=== PATIENT | female | born 1970 | race Two or more races ===

== ENCOUNTER 2016-06-07 19:53 | Inpatient (IN) | payer MEDICAID ==
[~2016-06-07] VITALS: Ht 160 cm; Wt 150.0 kg
[~2016-06-07 19:53] MED LIST: LEVO125T46; NOR10T
[2016-06-07 21:11] LABS: Basophils # (auto) 0 uL; Basophils % (auto) 0.1 % (0.0-2.0); Eosinophils # (auto) 0.1 uL; Eosinophils % (auto) 0.9 % (0.0-7.0); Hematocrit 44.8 % (36.0-46.0); Hemoglobin 14.9 g/dL (12.2-16.2); Lymphocytes # (auto) 1.1 uL; Lymphocytes % (auto) 8.9 % (10.0-50.0); Mean Corpuscular Hemoglobin 28.1 pg (28.0-32.0); Mean Corpuscular Hgb Conc. 33.2 g/dL (32.0-36.0); Mean Corpuscular Volume 84.9 fL (80.0-100.0); Monocytes # (auto) 0.9 uL; Monocytes % (auto) 7.3 % (0.0-12.0); Neutrophils % (auto) 82.8 % (37.0-80.0); Platelet Count (auto) 238 10^3/uL (140-450); Red Cell Distribution Width 13.8 % (11.6-16.0); White Blood Cell 12.1 10^3/uL (4.4-10.8)
[2016-06-07 21:31] LABS: Albumin 2.4 g/dL (3.4-5.0); BUN/Creatinine Ratio 10.1; Bilirubin, Total 1.2 mg/dL (0.2-1.0); Calcium 8.9 mg/dL (8.5-10.1); Potassium 3.8 mmol/L (3.5-5.1); Total Protein 8.3 g/dL (6.4-8.2)
[2016-06-08] MEDS ORDERED: SODIUM CHLORIDE 0.9% 1,000 ML IV ONE (01:30)
[2016-06-08] MEDS ORDERED: HYDROmorphone HCL 2 MG/ML VL ONE (02:00)
[2016-06-08] MEDS ORDERED: ONDANSETRON HCL 4 MG/2 ML VIAL ONE (02:01)
[2016-06-08] MEDS ORDERED: InsuLIN REG 1unit/0.01ml Soln (100units/ml) IV ONE (02:15)
[2016-06-08] MEDS ORDERED: HYDROmorphone HCL 2 MG/ML VL IV ONE (02:15)
[2016-06-08] MEDS ORDERED: ONDANSETRON HCL 4 MG/2 ML VIAL IV ONE (02:15)
[2016-06-08] MEDS ORDERED: SODIUM CHLORIDE 0.9% 1,000 ML IV SCH (04:38)
[2016-06-08] MEDS ORDERED: MORPHINE SULF INJ 2 MG/ML SYRINGE 1ML IV PRN (04:45)
[2016-06-08] MEDS ORDERED: ONDANSETRON HCL 4 MG/2 ML VIAL IV PRN (04:45)
[2016-06-08] MEDS ORDERED: TEMAZEPAM 15 MG CAP PO PRN (04:45)
[2016-06-08] MEDS ORDERED: ACETAMINOPHEN 325 MG TAB PO PRN (04:45)
[2016-06-08] MEDS ORDERED: SODIUM CHLORIDE 0.9% 500 ML IV ONE (04:45)
[2016-06-08] MEDS ORDERED: DEXTROSE (50%) 50ML SYRG IV PRN ×2 (05:00→10:00)
[2016-06-08 05:56] VITALS: BP 119/76
[2016-06-08] MEDS ORDERED: METF-312 PO (06:16)
[2016-06-08] MEDS: glipiZIDE 5 MG TAB PO SCH ×2 (06:43→18:25)
[2016-06-08] MEDS: LEVOTHYROXINE SODIUM 50 MCG TAB PO SCH (06:46)
[2016-06-08] MEDS ORDERED: ACCU-CHEK COMFORT CURVE STRIP VI SCH (08:00)
[2016-06-08] MEDS ORDERED: InsuLIN REG 1unit/0.01ml Soln (100units/ml) SC SCH (08:00)
[2016-06-08 08:50] VITALS: BP 113/67
[2016-06-08] MEDS ORDERED: NITROFURANTOIN (MONO) 100 mg CAP PO SCH (10:00)
[2016-06-08] MEDS ORDERED: cefTRIAXone 1GM/50ML D5W 50 ML IV ONE (10:15)
[2016-06-08] MEDS: FAMOTIDINE 20 MG TAB PO SCH ×2 (10:23→21:28)
[2016-06-08] MEDS: ENOXAPARIN SOD 40 MG/0.4 ML SYRINGE SC SCH (10:23)
[2016-06-08] MEDS: ACCU-CHEK COMFORT CURVE STRIP VI SCH ×3 (11:30→21:28)
[2016-06-08] MEDS: InsuLIN REG 1unit/0.01ml Soln (100units/ml) SC SCH ×3 (11:30→21:45)
[2016-06-08 12:50] VITALS: BP 111/74
[2016-06-08] MEDS: HYDROcodone-ACET 5/325MG TAB PO PRN ×2 (13:07→20:37)
[2016-06-08 16:50] VITALS: BP 121/68
[2016-06-08 21:30] VITALS: BP 127/78
[2016-06-09 04:58] VITALS: BP 121/77
[2016-06-09] MEDS: SODIUM CHLORIDE 0.9% 1,000 ML IV SCH ×2 (05:11→14:25)
[2016-06-09 06:03] LABS: Basophils # (auto) 0 uL; Basophils % (auto) 0.2 % (0.0-2.0); Eosinophils # (auto) 0.2 uL; Eosinophils % (auto) 1.9 % (0.0-7.0); Hematocrit 39.5 % (36.0-46.0); Hemoglobin 13.2 g/dL (12.2-16.2); Lymphocytes # (auto) 1.6 uL; Lymphocytes % (auto) 17.1 % (10.0-50.0); Mean Corpuscular Hemoglobin 28.2 pg (28.0-32.0); Mean Corpuscular Hgb Conc. 33.5 g/dL (32.0-36.0); Mean Corpuscular Volume 84.2 fL (80.0-100.0); Mean Platelet Volume 8.8 fL (7.4-10.4); Monocytes # (auto) 1.4 uL; Monocytes % (auto) 14.2 % (0.0-12.0); Neutrophils # (auto) 6.4 uL; Neutrophils % (auto) 66.6 % (37.0-80.0); Platelet Count (auto) 251 10^3/uL (140-450); Red Cell Distribution Width 13.8 % (11.6-16.0); White Blood Cell 9.6 10^3/uL (4.4-10.8)
[2016-06-09] MEDS: LEVOTHYROXINE SODIUM 50 MCG TAB PO SCH (06:23)
[2016-06-09] MEDS: glipiZIDE 5 MG TAB PO SCH ×2 (06:23→17:44)
[2016-06-09] MEDS: ACCU-CHEK COMFORT CURVE STRIP VI SCH ×4 (06:24→22:03)
[2016-06-09] MEDS: InsuLIN REG 1unit/0.01ml Soln (100units/ml) SC SCH ×4 (06:31→22:10)
[2016-06-09 06:56] LABS: BUN/Creatinine Ratio 13.1; Bilirubin, Total 0.6 mg/dL (0.2-1.0); Calcium 8.4 mg/dL (8.5-10.1); Potassium 3.8 mmol/L (3.5-5.1); Total Protein 7.1 g/dL (6.4-8.2)
[2016-06-09] MEDS: cefTRIAXone 1GM/50ML D5W 50 ML IV SCH (08:37)
[2016-06-09] MEDS: HYDROcodone-ACET 5/325MG TAB PO PRN ×2 (08:38→18:07)
[2016-06-09 08:49] VITALS: BP 127/72
[2016-06-09] MEDS: FAMOTIDINE 20 MG TAB PO SCH ×2 (09:17→21:59)
[2016-06-09] MEDS: ENOXAPARIN SOD 40 MG/0.4 ML SYRINGE SC SCH (09:17)
[2016-06-09 12:50] VITALS: BP 113/74
[2016-06-09 17:13] VITALS: BP 99/54
[2016-06-09] MEDS: metFORMIN HYDROCHLORIDE 500 MG TAB PO SCH (17:45)
[2016-06-09 20:00] VITALS: BP 145/71
[2016-06-09 21:28] VITALS: BP 145/71
[2016-06-10] MEDS: HYDROcodone-ACET 5/325MG TAB PO PRN (00:41)
[2016-06-10 06:02] VITALS: BP 126/73
[2016-06-10] MEDS: SODIUM CHLORIDE 0.9% 1,000 ML IV SCH ×2 (06:03→10:38)
[2016-06-10] MEDS: InsuLIN REG 1unit/0.01ml Soln (100units/ml) SC SCH (07:04)
[2016-06-10] MEDS: ACCU-CHEK COMFORT CURVE STRIP VI SCH (07:04)
[2016-06-10] MEDS: glipiZIDE 5 MG TAB PO SCH (07:06)
[2016-06-10] MEDS: LEVOTHYROXINE SODIUM 50 MCG TAB PO SCH (07:07)
[2016-06-10] MEDS: metFORMIN HYDROCHLORIDE 500 MG TAB PO SCH (07:08)
[2016-06-10 07:24] LABS: Basophils # (auto) 0 uL; Basophils % (auto) 0.4 % (0.0-2.0); Eosinophils # (auto) 0.5 uL; Eosinophils % (auto) 4.9 % (0.0-7.0); Hematocrit 39.7 % (36.0-46.0); Hemoglobin 13.1 g/dL (12.2-16.2); Lymphocytes # (auto) 1.7 uL; Mean Platelet Volume 8.9 fL (7.4-10.4); Monocytes # (auto) 1.1 uL; Monocytes % (auto) 11.6 % (0.0-12.0); Neutrophils % (auto) 65.1 % (37.0-80.0); Platelet Count (auto) 270 10^3/uL (140-450); Red Cell Distribution Width 14.1 % (11.6-16.0); White Blood Cell 9.2 10^3/uL (4.4-10.8)
[2016-06-10 07:53] LABS: Bilirubin, Total 0.4 mg/dL (0.2-1.0); Calcium 8.4 mg/dL (8.5-10.1); Potassium 4.4 mmol/L (3.5-5.1); Total Protein 7.1 g/dL (6.4-8.2)
[2016-06-10] MEDS: cefTRIAXone 1GM/50ML D5W 50 ML IV SCH (09:00)
[2016-06-10 09:24] VITALS: BP 116/78
[2016-06-10 09:35] VITALS: BP 116/78
[2016-06-10] MEDS: FAMOTIDINE 20 MG TAB PO SCH (10:00)
[2016-06-10] MEDS: ENOXAPARIN SOD 40 MG/0.4 ML SYRINGE SC SCH (10:00)
== END 2016-06-10 11:00 | disposition home or self-care (01) | DRG 463 ==
LOC: ER 20:00 → OVERFLOW 20:01 → CENTRAL 06-08 05:45
PROVIDERS: ADMIT Nurse Practitioner; ATTEND Internal Medicine
DX: N39.0 Urinary tract infection, site not specified (principal); E43 Unspecified severe protein-calorie malnutrition; E11.65 Type 2 diabetes mellitus with hyperglycemia; E87.1 Hypo-osmolality and hyponatremia; Z68.43 Body mass index [BMI] 50.0-59.9, adult; B37.9 Candidiasis, unspecified; E66.01 Morbid (severe) obesity due to excess calories; E03.9 Hypothyroidism, unspecified; N89.8 Other specified noninflammatory disorders of vagina; E86.0 Dehydration; K21.9 Gastro-esophageal reflux disease without esophagitis; F12.90 Cannabis use, unspecified, uncomplicated; F17.210 Nicotine dependence, cigarettes, uncomplicated; Z90.49 Acquired absence of other specified parts of digestive tract; Z98.51 Tubal ligation status; Z82.3 Family history of stroke; Z83.3 Family history of diabetes mellitus; Z79.899 Other long term (current) drug therapy; Z91.19 Patient's noncompliance with other medical treatment and regimen
CPT/HCPCS: 36415; 70450; 71010; 80053; 82010; 82962; 83036; 84295; 85025; 96361; 96374; 96375; J0696; J1815; J2405

== ENCOUNTER 2016-06-13 14:40 | Emergency (ER) | payer MEDICAID ==
[~2016-06-13] VITALS: Ht 160 cm; Wt 158.8 kg
[~2016-06-13 14:40] MED LIST changes: +METF-312 PO
[2016-06-13 14:59] VITALS: BP 163/96
[2016-06-13 15:23] LABS: Basophils # (auto) 0.1 uL; Basophils % (auto) 0.9 % (0.0-2.0); Eosinophils # (auto) 0.2 uL; Eosinophils % (auto) 1.7 % (0.0-7.0); Hematocrit 45.7 % (36.0-46.0); Hemoglobin 15.1 g/dL (12.2-16.2); Lymphocytes # (auto) 1.7 uL; Lymphocytes % (auto) 11.6 % (10.0-50.0); Mean Corpuscular Hemoglobin 27.6 pg (28.0-32.0); Mean Corpuscular Hgb Conc. 33.1 g/dL (32.0-36.0); Mean Corpuscular Volume 83.4 fL (80.0-100.0); Mean Platelet Volume 8.2 fL (7.4-10.4); Monocytes # (auto) 0.8 uL; Monocytes % (auto) 5.6 % (0.0-12.0); Neutrophils # (auto) 11.4 uL; Neutrophils % (auto) 80.2 % (37.0-80.0); Platelet Count (auto) 482 10^3/uL (140-450); Red Cell Distribution Width 14.4 % (11.6-16.0); White Blood Cell 14.2 10^3/uL (4.4-10.8)
[2016-06-13 15:39] LABS: Albumin 2.8 g/dL (3.4-5.0); Calcium 9.2 mg/dL (8.5-10.1); Potassium 4.1 mmol/L (3.5-5.1)
[2016-06-13 15:42] LABS: BUN/Creatinine Ratio 14.5; Bilirubin, Total 0.6 mg/dL (0.2-1.0)
[2016-06-13 19:51] LABS: Urine Bilirubin Negative (Negative); Urine Blood Negative /uL (Negative); Urine Color Yellow (Yellow); Urine Ketone Negative (Negative); Urine Mucus FEW (None Seen); Urine Nitrite Negative (Negative); Urine RBC 1 /hpf (0 - 4); Urine Squamous Epithelial Cell FEW /hpf (<5); Urine Urobilinogen Normal (Negative); Urine pH 5.5 (5.0-8.0)
[2016-06-13] MEDS ORDERED: SODIUM CHLORIDE 0.9% 1,000 ML IV ONE (20:00)
[2016-06-13] MEDS ORDERED: InsuLIN REG 1unit/0.01ml Soln (100units/ml) IV ONE (20:00)
[2016-06-13] MEDS ORDERED: KETOROLAC TROMETH 30 MG/ML 1ML VIAL IV ONE (20:15)
[2016-06-13] MEDS ORDERED: ONDANSETRON HCL 4 MG/2 ML VIAL IV ONE (20:15)
[2016-06-13 21:06] LABS: Urine Glucose 4+ mg/dL (Normal)
== END 2016-06-13 22:00 | disposition home or self-care (01) ==
LOC: ER 14:40
DX: E11.65 Type 2 diabetes mellitus with hyperglycemia (principal); K52.9 Noninfective gastroenteritis and colitis, unspecified; E87.1 Hypo-osmolality and hyponatremia; E86.0 Dehydration
CPT/HCPCS: 36415; 71010; 80053; 81001; 82010; 82962; 83605; 85025; 96361; 96374; 96375; 99285; J1885; J2405; J7030

== ENCOUNTER 2016-06-18 10:26 | Inpatient (IN) | payer MEDICAID ==
[2016-06-18] VITALS (8 sets, daily range): BP systolic 67–127; BP diastolic 27–75
[~2016-06-18] VITALS: Ht 160 cm; Wt 152.0 kg
[2016-06-18 11:25] LABS: Hematocrit 42.8 % (36.0-46.0); Hemoglobin 14.3 g/dL (12.2-16.2); Mean Corpuscular Hemoglobin 27.8 pg (28.0-32.0); Mean Corpuscular Hgb Conc. 33.5 g/dL (32.0-36.0); Mean Platelet Volume 9.7 fL (7.4-10.4); Platelet Count (auto) 303 10^3/uL (140-450); Red Cell Distribution Width 14.6 % (11.6-16.0); SUSPECT VIEW TRANSMISSION; White Blood Cell 19.3 10^3/uL (4.4-10.8)
[2016-06-18 11:39] LABS: Metamyelocytes % 0; Myelocytes % 0; Promyelocytes % 0; Reactive Lymphocytes 0
[2016-06-18 11:43] LABS: Lactic Acid 6.5 mmol/L (0.4-2.0)
[2016-06-18 11:44] LABS: REFLEX LACTIC ACID YES OR NO YES
[2016-06-18] MEDS ORDERED: cefTRIAXone 1GM/50ML D5W 50 ML IV ONE (12:00)
[2016-06-18] MEDS ORDERED: SODIUM CHLORIDE 0.9% 1,000 ML IV ONE (12:00)
[2016-06-18 12:10] LABS: Albumin 1.6 g/dL (3.4-5.0); Calcium 8.8 mg/dL (8.5-10.1); Magnesium 2.1 mg/dL (1.6-2.6); Potassium 4.9 mmol/L (3.5-5.1)
[2016-06-18 12:12] LABS: BUN/Creatinine Ratio 17.7
[2016-06-18 12:15] LABS: Bilirubin, Total 2.6 mg/dL (0.2-1.0); Total Protein 7.4 g/dL (6.4-8.2)
[2016-06-18 12:39] LABS: Urine Color Yellow (Yellow); Urine Ketone TRACE (Negative); Urine Mucus FEW (None Seen); Urine Nitrite Negative (Negative); Urine RBC 23 /hpf (0 - 4); Urine Squamous Epithelial Cell FEW /hpf (<5)
[2016-06-18 12:44] LABS: Urine Blood 1+ /uL (Negative); Urine Glucose 4+ mg/dL (Normal)
[2016-06-18 12:51] LABS: Urine Bilirubin 1+ (Negative)
[2016-06-18 13:04] LABS: Hypochromia Slight; Platelet Estimate Adequate
[2016-06-18] MEDS ORDERED: KETOROLAC TROMETH 30 MG/ML 1ML VIAL IV ONE (13:15)
[2016-06-18] MEDS ORDERED: NITROGLYCERIN 0.4 MG SL TAB SL PRN (13:30)
[2016-06-18] MEDS ORDERED: ACETAMINOPHEN 500 MG TAB PO PRN (13:30)
[2016-06-18] MEDS ORDERED: PIPERACILLIN-TAZOB 3.375GM 100 ML IV ONE (13:30)
[2016-06-18] MEDS ORDERED: LACTULOSE 20Gm/30ML SOLN PO PRN ×2 (13:30)
[2016-06-18] MEDS ORDERED: AZITHROMYCIN 500MG/D5W 250ML 250 ML IV ONE ×2 (13:30→15:30)
[2016-06-18] MEDS ORDERED: ALBUTEROL SULF 2.5 MG/0.5ML(0.5%) NEB SOLN NEB PRN (13:30)
[2016-06-18] MEDS ORDERED: MORPHINE SULF INJ 2 MG/ML SYRINGE 1ML IV PRN (13:30)
[2016-06-18] MEDS ORDERED: OSELTAMIVIR 75 MG CAP PO ONE (13:30)
[2016-06-18] MEDS ORDERED: HYDROcodone-ACET 5/325MG TAB PO PRN (13:30)
[2016-06-18] MEDS ORDERED: LORazepam 0.5 MG TAB PO PRN (13:30)
[2016-06-18] MEDS ORDERED: VANCOMYCIN PER PHARMACY 0 MG IV SCH (13:30)
[2016-06-18] MEDS ORDERED: TEMAZEPAM 15 MG CAP PO PRN (13:30)
[2016-06-18] MEDS ORDERED: InsuLIN REG 1unit/0.01ml Soln (100units/ml) IV ONE (13:30)
[2016-06-18] MEDS ORDERED: PROMETHAZINE HCL 25 MG/ML 1ML IV PRN (13:30)
[2016-06-18] MEDS ORDERED: ASPirin 81 mg TAB PO ONE (13:30)
[2016-06-18] MEDS ORDERED: DEXTROSE (50%) 50ML SYRG IV PRN (13:30)
[2016-06-18 14:17] LABS: Lactic Acid 4.7 mmol/L (0.4-2.0)
[2016-06-18] MEDS: SODIUM CHLORIDE 0.9% 1,000 ML IV SCH ×2 (14:19→21:48)
[2016-06-18] MEDS ORDERED: SODIUM BICARBONATE 8.4% INJ 50ML SYRINGE IV ONE (14:20)
[2016-06-18] MEDS ORDERED: EPINEPHrine HCL 1 MG/10 ML SYRG IV ONE (14:20)
[2016-06-18] MEDS ORDERED: VANCOMYCIN 1GM/250ML D5W 250 ML IV ONE (14:30)
[2016-06-18] MEDS: PANTOPRAZOLE 40 MG TAB PO SCH (14:32)
[2016-06-18] MEDS: ENOXAPARIN SOD 40 MG/0.4 ML SYRINGE SC SCH (14:32)
[2016-06-18 15:07] LABS: REFLEX LACTIC ACID YES OR NO NO
[2016-06-18 15:28] LABS: B-Type Natriuretic Peptide 96.1 pg/mL (0-100); Temperature: 21.4 C (20.0-25.0)
[2016-06-18] MEDS: InsuLIN REG 1unit/0.01ml Soln (100units/ml) SC SCH ×2 (16:00→20:45)
[2016-06-18] MEDS: MORPHINE SULF INJ 2 MG/ML SYRINGE 1ML IV PRN ×2 (16:25→22:58)
[2016-06-18] MEDS: ACCU-CHEK COMFORT CURVE STRIP VI SCH ×2 (16:33→20:00)
[2016-06-18] MEDS ORDERED: NOREPINEPHRINE BITARTRATE 250 ML IV ONE (17:09)
[2016-06-18 17:27] LABS: REFLEX LACTIC ACID YES OR NO NO
[2016-06-18] MEDS: NOREPINEPHRINE BITARTRATE 250 ML IV SCH (17:30)
[2016-06-18] MEDS: ALBUTEROL SULF 2.5 MG/0.5ML(0.5%) NEB SOLN NEB SCH (18:40)
[2016-06-18] MEDS: PIPERACILLIN-TAZOB 3.375GM 100 ML IV SCH (20:00)
[2016-06-18] MEDS: OSELTAMIVIR 75 MG CAP PO SCH (22:37)
[2016-06-19] VITALS (93 sets, daily range): BP systolic 74–149; BP diastolic 30–113
[2016-06-19] MEDS: ALBUTEROL SULF 2.5 MG/0.5ML(0.5%) NEB SOLN NEB SCH ×3 (00:19→06:49)
[2016-06-19] MEDS: PIPERACILLIN-TAZOB 3.375GM 100 ML IV SCH ×4 (02:00→21:38)
[2016-06-19] MEDS: InsuLIN REG 1unit/0.01ml Soln (100units/ml) SC SCH ×6 (04:00→21:33)
[2016-06-19] MEDS: ACCU-CHEK COMFORT CURVE STRIP VI SCH ×6 (04:00→21:33)
[2016-06-19 04:23] LABS: Hematocrit 41.1 % (36.0-46.0); Hemoglobin 13.6 g/dL (12.2-16.2); Mean Corpuscular Hemoglobin 27.9 pg (28.0-32.0); Mean Corpuscular Hgb Conc. 33.1 g/dL (32.0-36.0); Mean Corpuscular Volume 84.4 fL (80.0-100.0); Mean Platelet Volume 9.7 fL (7.4-10.4); Platelet Count (auto) 275 10^3/uL (140-450); SUSPECT VIEW TRANSMISSION; White Blood Cell 17.1 10^3/uL (4.4-10.8)
[2016-06-19 04:32] LABS: Promyelocytes % 0; Reactive Lymphocytes 0
[2016-06-19 04:34] LABS: Partial Thromboplastin Time 30.6 sec (22.64-33.71)
[2016-06-19 04:38] LABS: INR 1.35 (0.9-1.15); Prothrombin Time 13.9 sec (9.37-12.3)
[2016-06-19 05:22] LABS: Albumin 1.4 g/dL (3.4-5.0); BUN/Creatinine Ratio 15.4; Bilirubin, Total 3.3 mg/dL (0.2-1.0); Calcium 8.4 mg/dL (8.5-10.1); Potassium 4.6 mmol/L (3.5-5.1); Total Protein 6.7 g/dL (6.4-8.2)
[2016-06-19 05:26] LABS: B-Type Natriuretic Peptide 149.72 pg/mL (0-100); Temperature: 21.9 C (20.0-25.0)
[2016-06-19] MEDS: SODIUM CHLORIDE 0.9% 1,000 ML IV SCH ×3 (06:08→23:04)
[2016-06-19] MEDS: LEVALBUTEROL HCL 1.25 MG/0.5 ML NEB SOLN NEB SCH ×4 (09:19→23:51)
[2016-06-19] MEDS: PANTOPRAZOLE 40 MG TAB PO SCH (09:35)
[2016-06-19] MEDS: OSELTAMIVIR 75 MG CAP PO SCH ×2 (09:35→22:50)
[2016-06-19] MEDS: ENOXAPARIN SOD 40 MG/0.4 ML SYRINGE SC SCH (09:35)
[2016-06-19] MEDS ORDERED: AZITHROMYCIN 500MG/D5W 250ML 250 ML IV SCH (10:00)
[2016-06-19 12:44] LABS: Giant Platelets Few; Metamyelocytes % 9; Myelocytes % 6; Platelet Estimate Adequate; RBC Morphology Normal
[2016-06-19] MEDS ORDERED: ETOMIDATE (2MG/ML) 20ML VIAL IV ONE ×2 (13:31→17:19)
[2016-06-19] MEDS ORDERED: ROCURONIUM 10MG/ML 10ML VIAL IV ONE ×2 (13:31→17:18)
[2016-06-19] MEDS ORDERED: SUCCINYLCHOLINE CHLORIDE 20 MG/ML 10ML VIAL IV ONE ×2 (13:32→17:19)
[2016-06-19] MEDS: fentaNYL Drip 2500mCg/250mlNS 250 ML IV SCH (13:45)
[2016-06-19] MEDS ORDERED: fentaNYL Drip 2500mCg/250mlNS 250 ML IV ONE (14:06)
[2016-06-19] MEDS ORDERED: VANCOMYCIN 1,500 MG in D5W 5% 250 ML IV SCH (15:00)
[2016-06-19] MEDS ORDERED: SODIUM BICARBONATE 8.4 % INJ 50ML VIAL IV STA (15:29)
[2016-06-19] MEDS ORDERED: SODIUM BICARBONATE 8.4% INJ 50ML SYRINGE ONE (15:30)
[2016-06-19] MEDS ORDERED: SODIUM BICARBONATE 8.4 % INJ 50ML VIAL IV ONE (15:30)
[2016-06-19] MEDS ORDERED: MIDAZOLAM DRIP 100 mg/100mL NS 100 ML IV ONE (17:09)
[2016-06-19] MEDS: MIDAZOLAM DRIP 100 mg/100mL NS 100 ML IV SCH (17:14)
[2016-06-19] MEDS ORDERED: MIDAZOLAM HCL 1MG/1ML-2 ML VIAL ONE ×2 (17:26→17:38)
[2016-06-19] MEDS ORDERED: BUMETANIDE (0.25 MG/ML) INJ 10ML IV ONE (17:30)
[2016-06-19] MEDS: NOREPINEPHRINE BITARTRATE 250 ML IV SCH (20:03)
[2016-06-19] MEDS ORDERED: VASOPRESSIN 20 UNIT/ML ONE (20:17)
[2016-06-19] MEDS: VASOPRESSIN 50 UNITS in SODIUM CHL 0.9% 247.5 ML IV SCH (22:20)
[2016-06-20] VITALS (108 sets, daily range): BP systolic 47–160; BP diastolic 27–111
[2016-06-20] MEDS: InsuLIN REG 1unit/0.01ml Soln (100units/ml) SC SCH ×5 (00:08→23:38)
[2016-06-20] MEDS: ACCU-CHEK COMFORT CURVE STRIP VI SCH ×6 (00:29→23:38)
[2016-06-20] MEDS: NOREPINEPHRINE BITARTRATE 250 ML IV SCH ×2 (00:30→04:32)
[2016-06-20] MEDS: PIPERACILLIN-TAZOB 3.375GM 100 ML IV SCH ×4 (01:41→21:07)
[2016-06-20] MEDS ORDERED: PHENYLEPHRINE INJ 20 MG in SODIUM CHL 0.9% 250 ML IV SCH (01:57)
[2016-06-20] MEDS ORDERED: PHENYLEPHRINE IV 250 ML IV ONE ×2 (03:47→07:08)
[2016-06-20 03:50] LABS: Hematocrit 36.4 % (36.0-46.0); Mean Corpuscular Hemoglobin 28.2 pg (28.0-32.0); Mean Corpuscular Hgb Conc. 33.1 g/dL (32.0-36.0); Mean Corpuscular Volume 85.3 fL (80.0-100.0); Mean Platelet Volume 9.6 fL (7.4-10.4); Platelet Count (auto) 233 10^3/uL (140-450); Red Cell Distribution Width 16.1 % (11.6-16.0); SUSPECT VIEW TRANSMISSION; White Blood Cell 27.4 10^3/uL (4.4-10.8)
[2016-06-20 04:34] LABS: Albumin 1.2 g/dL (3.4-5.0); BUN/Creatinine Ratio 14.7; Bilirubin, Total 4.1 mg/dL (0.2-1.0); Calcium 7.7 mg/dL (8.5-10.1); Potassium 5.5 mmol/L (3.5-5.1); Total Protein 6.3 g/dL (6.4-8.2)
[2016-06-20 05:03] LABS: Promyelocytes % 0; Reactive Lymphocytes 0
[2016-06-20 05:24] LABS: Metamyelocytes % 3; Myelocytes % 3
[2016-06-20 05:25] LABS: Platelet Estimate Adequate; RBC Morphology Normal
[2016-06-20] MEDS: LEVALBUTEROL HCL 1.25 MG/0.5 ML NEB SOLN NEB SCH ×3 (05:51→19:36)
[2016-06-20 06:29] LABS: Lactic Acid 3.8 mmol/L (0.4-2.0)
[2016-06-20 06:34] LABS: REFLEX LACTIC ACID YES OR NO NO
[2016-06-20] MEDS ORDERED: DEXTROSE (50%) 50ML SYRG IV PRN (06:45)
[2016-06-20] MEDS: SODIUM CHLORIDE 0.9% 1,000 ML IV SCH ×2 (07:27→14:54)
[2016-06-20] MEDS: NOREPINEPHRINE BITARTRATE 16 MG in D5W 5% 250 ML IV SCH ×2 (09:00→20:00)
[2016-06-20] MEDS: PHENYLEPHRINE INJ 40 MG in SODIUM CHL 0.9% 250 ML IV SCH ×2 (09:00→22:18)
[2016-06-20] MEDS ORDERED: LEVOFLOXACIN 500MG 100 ML IV SCH (10:15)
[2016-06-20] MEDS ORDERED: LEVOFLOXACIN 500MG 100 ML IV ONE (10:15)
[2016-06-20] MEDS ORDERED: LEVOFLOXACIN 750MG 150 ML IV ONE (10:15)
[2016-06-20] MEDS: ENOXAPARIN SOD 40 MG/0.4 ML SYRINGE SC SCH (10:19)
[2016-06-20] MEDS: PANTOPRAZOLE 40 MG TAB PO SCH (10:19)
[2016-06-20] MEDS: OSELTAMIVIR 75 MG CAP PO SCH ×2 (10:19→22:00)
[2016-06-20] MEDS: FLUCONAZOLE 200MG/100ML 100 ML IV SCH ×2 (10:54→11:20)
[2016-06-20] MEDS: LINEZOLID 600MG/300ML 300 ML IV SCH ×2 (11:21→23:40)
[2016-06-20] MEDS: fentaNYL Drip 2500mCg/250mlNS 250 ML IV SCH (13:45)
[2016-06-20] MEDS: CLINDAMYCIN 300MG IV 50 ML IV SCH ×2 (14:00→22:21)
[2016-06-20] MEDS: EPINEPHrine HCL INJECTION 8 MG in D5W 5% 250 ML IV SCH ×2 (14:54→22:18)
[2016-06-20] MEDS ORDERED: SODIUM CHLORIDE 0.9% 2,000 ML IV ONE (15:15)
[2016-06-20] MEDS ORDERED: SODIUM BICARBONATE 8.4% INJ 50ML SYRINGE ONE ×2 (15:21→22:49)
[2016-06-20] MEDS ORDERED: SODIUM BICARBONATE 8.4 % INJ 50ML VIAL IV ONE ×2 (15:30→23:00)
[2016-06-20] MEDS: ALBUMIN 25% 100 ML IV SCH ×2 (15:50→17:30)
[2016-06-20] MEDS: SODIUM BICARBONATE 50ML VIAL 150 ML in D5W 5% 1,000 ML IV SCH (16:00)
[2016-06-20 16:05] LABS: DEFINITIVE VIEW TRANSMISSION; Hematocrit 33.3 % (36.0-46.0); Hemoglobin 11.1 g/dL (12.2-16.2); Mean Corpuscular Hemoglobin 28.5 pg (28.0-32.0); Mean Corpuscular Hgb Conc. 33.2 g/dL (32.0-36.0); Mean Corpuscular Volume 85.8 fL (80.0-100.0); Mean Platelet Volume 9.6 fL (7.4-10.4); Platelet Count (auto) 220 10^3/uL (140-450); Red Cell Distribution Width 16.2 % (11.6-16.0); SUSPECT VIEW TRANSMISSION
[2016-06-20 16:16] LABS: Lactic Acid 7.5 mmol/L (0.4-2.0)
[2016-06-20 16:19] LABS: REFLEX LACTIC ACID YES OR NO NO
[2016-06-20 16:20] LABS: Albumin 0.9 g/dL (3.4-5.0); BUN/Creatinine Ratio 13.8; Bilirubin, Total 3.6 mg/dL (0.2-1.0); Phosphorus 7.7 mg/dL (2.5-4.90); Total Protein 5.5 g/dL (6.4-8.2)
[2016-06-20 16:21] LABS: Bilirubin, Direct 3.3 mg/dL (0-0.2)
[2016-06-20 16:24] LABS: Potassium 6.7 mmol/L (3.5-5.1)
[2016-06-20 16:34] LABS: Promyelocytes % 0; Reactive Lymphocytes 0
[2016-06-20] MEDS: MIDAZOLAM DRIP 100 mg/100mL NS 100 ML IV SCH (17:14)
[2016-06-20] MEDS ORDERED: CALCIUM GLUC 4.65 MEQ/10ML 4.65 MEQ in SODIUM CHL 0.9% 50 ML IV ONE ×2 (18:00→23:00)
[2016-06-20] MEDS ORDERED: DEXTROSE (50%) 50ML SYRG IV ONE ×2 (18:00→23:00)
[2016-06-20] MEDS ORDERED: InsuLIN REG 1unit/0.01ml Soln (100units/ml) IV ONE ×2 (18:00→23:00)
[2016-06-20 18:02] LABS: DEFINITIVE VIEW TRANSMISSION; Hematocrit 32.3 % (36.0-46.0); Hemoglobin 10.8 g/dL (12.2-16.2); Mean Corpuscular Hemoglobin 28.5 pg (28.0-32.0); Mean Corpuscular Hgb Conc. 33.5 g/dL (32.0-36.0); Mean Corpuscular Volume 85.3 fL (80.0-100.0); Mean Platelet Volume 9.4 fL (7.4-10.4); Platelet Count (auto) 229 10^3/uL (140-450); Red Cell Distribution Width 16.3 % (11.6-16.0); SUSPECT VIEW TRANSMISSION
[2016-06-20 18:05] LABS: White Blood Cell 38.9 10^3/uL (4.4-10.8)
[2016-06-20 18:06] LABS: Promyelocytes % 0; Reactive Lymphocytes 0
[2016-06-20 18:18] LABS: BUN/Creatinine Ratio 14.3; Calcium 6.8 mg/dL (8.5-10.1)
[2016-06-20 18:26] LABS: Potassium 6.6 mmol/L (3.5-5.1)
[2016-06-20 19:15] LABS: Metamyelocytes % 2; Myelocytes % 2; Platelet Estimate Adequate
[2016-06-20 19:16] LABS: Metamyelocytes % 4; Myelocytes % 3; Platelet Estimate Adequate; RBC Morphology Normal
[2016-06-20] MEDS ORDERED: EPINEPHrine HCL 250 ML IV ONE (19:45)
[2016-06-20] MEDS: VASOPRESSIN 50 UNITS in SODIUM CHL 0.9% 247.5 ML IV SCH ×2 (20:00→22:19)
[2016-06-20] MEDS ORDERED: CALCIUM GLUC 4.65 MEQ/10ML IV ONE (22:48)
[2016-06-20] MEDS ORDERED: DEXTROSE 50% SYRINGE 50 ML IV ONE (22:49)
[2016-06-20] MEDS ORDERED: BUMETANIDE (0.25MG/ML) 4 ML VIAL ONE ×2 (22:50→22:53)
[2016-06-20] MEDS ORDERED: BUMETANIDE (0.25 MG/ML) INJ 10ML IV ONE (23:00)
[2016-06-20] MEDS ORDERED: ALBUTEROL SULF 2.5 MG/0.5ML(0.5%) NEB SOLN NEB ONE (23:00)
[2016-06-21] VITALS (48 sets, daily range): BP systolic 86–126; BP diastolic 37–49
[2016-06-21] MEDS: LEVALBUTEROL HCL 1.25 MG/0.5 ML NEB SOLN NEB SCH ×2 (02:02→06:21)
[2016-06-21] MEDS: PHENYLEPHRINE INJ 40 MG in SODIUM CHL 0.9% 250 ML IV SCH ×2 (02:20→06:17)
[2016-06-21] MEDS: PIPERACILLIN-TAZOB 3.375GM 100 ML IV SCH ×2 (02:23→09:12)
[2016-06-21] MEDS: SODIUM BICARBONATE 50ML VIAL 150 ML in D5W 5% 1,000 ML IV SCH ×2 (04:03→07:20)
[2016-06-21] MEDS ORDERED: PHENYLEPHRINE IV 250 ML IV ONE (06:04)
[2016-06-21] MEDS ORDERED: PHENYLEPHRINE HCL 10 MG/ML VL ONE (06:05)
[2016-06-21] MEDS: CLINDAMYCIN 300MG IV 50 ML IV SCH (06:17)
[2016-06-21] MEDS: ACCU-CHEK COMFORT CURVE STRIP VI SCH (06:18)
[2016-06-21] MEDS: InsuLIN REG 1unit/0.01ml Soln (100units/ml) SC SCH (06:35)
[2016-06-21 07:24] LABS: DEFINITIVE VIEW TRANSMISSION; Hematocrit 28.4 % (36.0-46.0); Hemoglobin 9.5 g/dL (12.2-16.2); Mean Corpuscular Hemoglobin 28.7 pg (28.0-32.0); Mean Corpuscular Hgb Conc. 33.3 g/dL (32.0-36.0); Mean Corpuscular Volume 86.2 fL (80.0-100.0); Mean Platelet Volume 9.2 fL (7.4-10.4); Platelet Count (auto) 131 10^3/uL (140-450); Red Cell Distribution Width 16.5 % (11.6-16.0); SUSPECT VIEW TRANSMISSION
[2016-06-21 07:47] LABS: White Blood Cell 38.9 10^3/uL (4.4-10.8)
[2016-06-21 07:48] LABS: Promyelocytes % 0; Reactive Lymphocytes 0
[2016-06-21 07:53] LABS: Albumin 1.4 g/dL (3.4-5.0); Bilirubin, Total 5.7 mg/dL (0.2-1.0); Calcium 6.7 mg/dL (8.5-10.1)
[2016-06-21 08:02] LABS: Potassium 7.8 mmol/L (3.5-5.1)
[2016-06-21] MEDS ORDERED: DEXTROSE (50%) 50ML SYRG IV ONE (08:15)
[2016-06-21] MEDS ORDERED: SODIUM BICARBONATE 8.4 % INJ 50ML VIAL IV ONE (08:15)
[2016-06-21] MEDS ORDERED: InsuLIN REG 1unit/0.01ml Soln (100units/ml) IV ONE (08:15)
[2016-06-21] MEDS ORDERED: CALCIUM GLUC 4.65 MEQ/10ML 4.65 MEQ in SODIUM CHL 0.9% 50 ML IV ONE (08:15)
[2016-06-21 08:53] LABS: Metamyelocytes % 6; Myelocytes % 3
[2016-06-21 08:54] LABS: Large Platelets FEW; Platelet Estimate Adequa; Polychromasia Slight
[2016-06-21 08:57] LABS: Toxic Vacuolation Present
[2016-06-21] MEDS: NOREPINEPHRINE BITARTRATE 16 MG in D5W 5% 250 ML IV SCH (09:00)
[2016-06-21] MEDS ORDERED: ENOXAPARIN SOD 30 MG/0.3 ML SYRINGE SC SCH (10:00)
[2016-06-21] MEDS ORDERED: LEVOFLOXACIN 250MG 50 ML IV SCH (10:00)
[2016-06-21] MEDS ORDERED: FLUCONAZOLE 200MG/100ML 100 ML IV SCH (10:00)
[2016-06-21] MEDS ORDERED: LEVOFLOXACIN 500MG 100 ML IV SCH (10:00)
== END 2016-06-21 11:06 | disposition expired | DRG 720 ==
LOC: ER 10:26 → TELE 10:27 → ICU WEST 20:30
PROVIDERS: ADMIT Internal Medicine; ATTEND Internal Medicine
PROC: 5A1945Z Respiratory Ventilation, 24-96 Consecutive Hours (ICD-10-PCS; principal; 2016-06-19)
PROC: 0BH17EZ Insertion of Endotracheal Airway into Trachea, Via Natural or Artificial Opening (ICD-10-PCS; 2016-06-19)
PROC: 5A09357 Assistance with Respiratory Ventilation, Less than 24 Consecutive Hours, Continuous Positive Airway Pressure (ICD-10-PCS; 2016-06-19)
PROC: 05HN33Z Insertion of Infusion Device into Left Internal Jugular Vein, Percutaneous Approach (ICD-10-PCS; 2016-06-19)
PROC: B544ZZA Ultrasonography of Left Jugular Veins, Guidance (ICD-10-PCS; 2016-06-19)
PROC: 04HL33Z Insertion of Infusion Device into Left Femoral Artery, Percutaneous Approach (ICD-10-PCS; 2016-06-20)
DX: A41.59 Other Gram-negative sepsis (principal); J96.01 Acute respiratory failure with hypoxia; I46.9 Cardiac arrest, cause unspecified; R65.21 Severe sepsis with septic shock; E43 Unspecified severe protein-calorie malnutrition; J15.0 Pneumonia due to Klebsiella pneumoniae; E87.0 Hyperosmolality and hypernatremia; E87.1 Hypo-osmolality and hyponatremia; R16.0 Hepatomegaly, not elsewhere classified; E11.22 Type 2 diabetes mellitus with diabetic chronic kidney disease; N10 Acute pyelonephritis; E66.01 Morbid (severe) obesity due to excess calories; E03.9 Hypothyroidism, unspecified; E11.65 Type 2 diabetes mellitus with hyperglycemia; F19.10 Other psychoactive substance abuse, uncomplicated; N18.9 Chronic kidney disease, unspecified; K21.9 Gastro-esophageal reflux disease without esophagitis; E87.5 Hyperkalemia; B96.1 Klebsiella pneumoniae [K. pneumoniae] as the cause of diseases classified elsewhere; E83.52 Hypercalcemia; F17.210 Nicotine dependence, cigarettes, uncomplicated; F12.90 Cannabis use, unspecified, uncomplicated; F41.9 Anxiety disorder, unspecified; F32.9 Major depressive disorder, single episode, unspecified; I12.9 Hypertensive chronic kidney disease with stage 1 through stage 4 chronic kidney disease, or unspecified chronic kidney disease; Z66 Do not resuscitate; Z82.49 Family history of ischemic heart disease and other diseases of the circulatory system; Z83.3 Family history of diabetes mellitus; Z82.3 Family history of stroke; Z80.0 Family history of malignant neoplasm of digestive organs; Z91.19 Patient's noncompliance with other medical treatment and regimen; Z90.49 Acquired absence of other specified parts of digestive tract; Z98.51 Tubal ligation status; Z83.49 Family history of other endocrine, nutritional and metabolic diseases; Z68.43 Body mass index [BMI] 50.0-59.9, adult
CPT/HCPCS: 36415; 36600; 51702; 71010; 74176; 76942; 80048; 80053; 80061; 80076; 80202; 80320; 81001; 81025; 82150; 82550; 82805; 82962; 83036; 83605; 83615; 83690; 83735; 83880; 84100; 84132; 84443; 84484; 85007; 85027; 85379; 85610; 85652; 85730; 86141; 87040; 87070; 87077; 87081; 87086; 87088; 87186; 87205; 87400; 93005; 93306; 94002; 94003; 94640; 94644; 94660; 96365; 96367; 96368; 96375; 99291; G0434; J0171; J0330; J0696; J1450; J1815; J1885; J1956; J2250; J2543; J3010; J3490; J7060